=== PATIENT | male | born 1970 | race Caucasian/White ===

== ENCOUNTER → 2018-12-12 05:45 | Day surgery (SDC) | payer BC ==
[~2018-12-12 05:45] MED LIST: Buffered Lidocaine 1% SYRIN* 1 ML/SYRINGE INTRADERM ONE; Dexamethasone IV* 4 MG/ML 1 ML (4 MG) ONE; Famotidine IV* 10 MG/ML 2 ML (20 mg) IV ONE; Famotidine IV* 10 MG/ML 2 ML (20 mg) ONE; Ketorolac INJ* 30 MG/ML 1 ML VIAL ONE; Lactated Ringers 1000 ML Bag* 1,000 ML IV SCH; Lidocain 1% EPI 1:100,000 * 30 ML MDV ONE; Lidocaine 2% PF * 5 ML VIAL ONE; Midazolam* 1 MG/ML 10 ML VIAL (10 MG) ONE; Naloxone* 0.4 MG/ML 1 ML VIAL IV PRN; Ondansetron INJ* 2 MG/ML VIAL IV PRN; Ondansetron INJ* 2 MG/ML VIAL ONE; Propofol* 10 MG/ML 20 ML BTL ONE; ceFAZolin 2 GM in NS PREMIX(*) 2 GM/100 ML BAG IVPB ONE; fentaNYL* 50 MCG/ML 2 ML VIAL (100 MCG VIAL) IV PRN; fentaNYL* 50 MCG/ML 2 ML VIAL (100 MCG VIAL) ONE; oxyCODONE/Acetamin 5/325 MG* TAB PO PRN
--- NOTE | 2018-12-12 08:21 | BRIEFOPN ---
Brief Operative Note - Surgery Procedures: Procedures Pre-OP Diagnoses: esophageal Ca Post-op Diagnosis: same Procedure: Insertion of powerport Surgeon: Tiffani Asst: none Anethesia: local, MAC EBL: minimal IVF: minimal Specimen: none Drains: none 8Fr single lumen power port via L SCV
[2018-12-12 09:43] VITALS: BP 117/81
--- NOTE | 2018-12-12 10:48 | OP ---
CC: Dr. John Barahona; Prasanth Petty NP at [facility]* OPERATIVE REPORT: DATE OF OPERATION: 12/12/18 - SDS DATE OF : 70 SURGEON: Arpit Nixon MD DIRECTOR OF VOCATIONAL TRAINING: None. ANESTHESIOLOGIST: Dr. Johnson. ANESTHESIA: Local MAC. PRE-OP DIAGNOSIS: Esophageal cancer. POST-OP DIAGNOSIS: Esophageal cancer OPERATIVE PROCEDURE: Insertion of PowerPort. ESTIMATED BLOOD LOSS: Minimal blood loss. FLUIDS: Crystalloid fluid given. DRAINS: 8-Ugandan PowerPort placed via the left subclavian vein. DESCRIPTION OF PROCEDURE: The patient was identified in the preoperative area, marked, brought to the operating room and placed on the operating table in supine position. Preoperative antibiotics were given. Sequential devices were placed on bilateral lower extremities. The patient was positioned on the table. Gentle sedation was given. The patient's left upper chest and neck were prepped and draped in a standard surgical fashion. Timeout was performed. Left subclavian vein was accessed, wire inserted under fluoroscopy into the appropriate positioning in the superior vena cava. An incision inferior to this was made, a pocket was made for the port. The wire was brought into this incision and the vein was dilated under fluoroscopy with the given dilators. An 8-Ugandan tubing was then inserted. Split-away cath removed and it was cut to size ensuring this through fluoroscopy. The PowerPort was placed along with a hub and it was sutured into the pocket with 0 Prolene sutures laterally and medially. Wound was irrigated. We injected heparinized saline and closed the incision in a typical fashion. The patient tolerated the procedure well. [id number]/[facility] #: [id number] [facility]
== END | disposition home or self-care (01) ==
LOC: OR 05:45
PROVIDERS: ATTEND Surgery
DX: C15.5 Malignant neoplasm of lower third of esophagus (principal); K21.9 Gastro-esophageal reflux disease without esophagitis; Z72.0 Tobacco use; E11.9 Type 2 diabetes mellitus without complications; F41.8 Other specified anxiety disorders
CPT/HCPCS: 76000; C1788; J0690; J1100; J1642; J1644; J1885; J2250; J2405; J2704; J3010